=== PATIENT | male | born 1955 | race Caucasian/White ===

== ENCOUNTER 2021-04-06 07:07 | Inpatient (IN) | payer MEDICARE, MEDICAID ==
[~2021-04-06] VITALS: Ht 177.8 cm; Wt 101.3 kg
[2021-04-06] VITALS (8 sets, daily range): BP systolic 116–130; BP diastolic 78–90
[~2021-04-06 07:07] MED LIST: ALBUTERO2 IN; ATORVASTATIN CA20 MG PO; FLONASE AL50 MCG/ACT NAB; GLIPIZIDE5 M2 PO; HYDROCHLOROT25 MG PO; JANUVIA100 MG PO; LASIX 20 MG TAB20 MG PO; LISINOPRIL40 MG PO; NESINA25 MG PO; NORVASC5 M1 PO; SYMBICORT1 AE1 IN
--- NOTE | 2021-04-06 07:07 | NUR ---
PATIENT TO ROOM WITH A STEADY GAIT REFUSING WHEELCHAIR.
[2021-04-06 07:48] LABS: HEMATOCRIT 48.3 % (39.0-50.0); HEMOGLOBIN 15.4 g/dl (14.0-18.0); IMMATURE GRANULOCYTES 0.1 % (0.0-5.0); MEAN CELL VOLUME 100.6 fL CALC (80.0-100.0); MEAN CORPUSCULAR HGB 32.1 pG CALC (26.0-32.0); MEAN CORPUSCULAR HGB CONC 31.9 g/dL CAL (32.0-36.0); NEUT# 7.47 thou/uL (1.82-7.42); RED BLOOD COUNT 4.8 mill/uL (4.70-6.10); RED CELL DISTRI WIDTH 14.1 % (11.5-15.5)
--- NOTE | 2021-04-06 07:50 | NUR ---
SITTING UP IN BED IN NO DISTRESS. O2 SAT 96% ON RA, EMPTIED URINAL OF 150CC DARK JONELLE URINE
[2021-04-06 08:02] LABS: ALBUMIN 4.3 g/dL (3.2-5.0); ALKALINE PHOSPHATASE 124 u/l (38-126); ANION GAP 12 (6-22 (CALC)); BILIRUBIN, TOTAL 1.1 mg/dL (0.0-1.4); BUN 15 mg/dL (8-23); BUN/CREATININE RATIO 13 (12-20 (CALC)); CARBON DIOXIDE 25 mmol/l (22-30); CHLORIDE 101 mmol/l (95-108); CREATININE 1.1 mg/dL (0.7-1.3); GFR > 60 ML/MIN (>=60 (CALC)); GFR FOR AFR.AMER. > 60 ML/MIN (>=60 (CALC)); POTASSIUM 4.1 mmol/l (3.5-5.1); SGOT/AST 32 u/l (19-48); SODIUM 134 mmol/l (137-146); TOTAL PROTEIN 7.7 g/dL (6.3-8.2)
--- NOTE | 2021-04-06 08:50 | NUR ---
UPDATED ON WAIT TIME AND POC, RESP EVEN AND UNLABORED, NO DISTRESS. DENIES CHEST PAIN
--- NOTE | 2021-04-06 09:14 | NUR ---
CONTINUES WITH NEBULIZER TREATMENT PER RT. URINAL EMPTIED OF 800CC CLEAR LIGHT YELLOW URINE. O2 96% ON RA, N O AUDIBLE WHEEZING, NO TACHYPNEA OR SOB AT THIS TIME
[2021-04-06] MEDS ORDERED: ELIQUIS5 MG PO (10:04)
--- NOTE | 2021-04-06 10:40 | NUR ---
TOOK PT UP FOR GLORIA RN TO ICU ON MONITOR, VSS, NO DISTRESS, ALL BELONGINGS WITH PATIENT
--- NOTE | 2021-04-06 11:08 | NUR ---
Patient recieved from ED. Here for incr bilat leg swell, SOB, AFIB. Patient a/o. RN assisted with urinal and then set up for lunch. Patient resting comfortably vital signs WNL and no complaints at this time. call light within reach
--- NOTE | 2021-04-06 13:08 | NUR ---
Patient having lots of urine output. Legs elevated and vitals WNL. Call light within reach
--- NOTE | 2021-04-06 15:16 | NUR ---
[phone] STAFF AND PATIENTS EVACUATED TO BACK HALLS DUE TO PLAN DIDIER GRANT. PATIENT NOT HOOKED BACK UP TO MONITORS UNTIL BACK IN ROOM. VITALS WNL
--- NOTE | 2021-04-06 19:05 | NUR ---
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
--- NOTE | 2021-04-06 20:15 | NUR ---
awake in bed; offers no complaints; iv intact; afib on monitor; call light within reach; will continue to monitor
--- NOTE | 2021-04-06 21:50 | NUR ---
afib 150-160s briefly when standing at bedside to use urinal; will continue to monitor
--- NOTE | 2021-04-06 22:12 | NUR ---
pt sitting on the side of the bed; no apparent distress noted; offers no complaints; afib on monitor; will continue to monitor
[2021-04-07] VITALS (16 sets, daily range): BP systolic 81–140; BP diastolic 66–100
--- NOTE | 2021-04-07 00:05 | NUR ---
resting with eyes closed; easily aroused; offers no complaints; iv intact; afib on monitor; call light within reach; will continue to monitor
--- NOTE | 2021-04-07 02:02 | NUR ---
awake in bed; coughing noted; no distress noted; afib on monitor; will continue to monitor
--- NOTE | 2021-04-07 04:13 | NUR ---
awake in bed; freq coughing noted; afib 140-170s on monitor; labs obtained at this time; pt allowed to change into t-shirt as per request; cardizem gtt initiated at 10mg/hr; call light within reach; will continue to monitoer
[2021-04-07 04:28] LABS: HEMATOCRIT 47.3 % (39.0-50.0); HEMOGLOBIN 15.2 g/dl (14.0-18.0); MEAN CORPUSCULAR HGB 32.1 pG CALC (26.0-32.0); MEAN CORPUSCULAR HGB CONC 32.1 g/dL CAL (32.0-36.0); RED BLOOD COUNT 4.73 mill/uL (4.70-6.10)
[2021-04-07 04:49] LABS: ANION GAP 15 (6-22 (CALC)); BUN 14 mg/dL (8-23); BUN/CREATININE RATIO 13 (12-20 (CALC)); CARBON DIOXIDE 26 mmol/l (22-30); CHLORIDE 98 mmol/l (95-108); CREATININE 1.1 mg/dL (0.7-1.3); GFR > 60 ML/MIN (>=60 (CALC)); GFR FOR AFR.AMER. > 60 ML/MIN (>=60 (CALC)); MAGNESIUM 1.9 mg/dL (1.6-2.3); POTASSIUM 4.1 mmol/l (3.5-5.1); SODIUM 136 mmol/l (137-146)
--- NOTE | 2021-04-07 06:08 | NUR ---
awake in bed; offers no complaints; iv intact; cardizem gtt cont at 5mg/hr; no redness or edema noted at site; afib 70s on monitor; call light within reach
--- NOTE | 2021-04-07 07:00 | NUR ---
BSSR RECEIVED FROM CRISELDA GARCIA. PT AWAKE ALERT AND APPROPRIATE. VSS, CARDIZEM INFUSING THROUGH PATENT IV SITE. RATE IS 5MG/HR. HR 85. RHYTHM REMAINS AFIB. PT DENIES PAIN, SOB OR DISCOMFORT. INSTRUCTED PT TO CALL FOR ASSISTANCE, VERBALIZES UNDERSTANDING.
--- NOTE | 2021-04-07 07:18 | NUR ---
PT C NAD. VSS. C/O DINNER WAS COLD LAST NIGHT. DEBEADER TO MONITOR.
--- NOTE | 2021-04-07 10:02 | NUR ---
CARDIZEM GTT TURNED FROM 5MG/HR TO OFF AT THIS TIME. WILL RE-TAKE BLOOD PRESSURE IN 30 MINUTES AND GIVE ORDERED BETA JUANCARLOS. PT STATES UNDERSTANDING TO POC, CALL LIGHT WITHIN REACH. INSTRUCTED PT TO CALL FOR ASSISTANCE, VERBALIZES UNDERSTANDING.
--- NOTE | 2021-04-07 14:00 | NUR ---
PT RESTING IN BED. CARDIZEM REMAINS OFF, HR WNL. DENIES ANY TYPE OF SOB, CP OR DISCOMFORT. INSTRUCTED PT TO CALL FOR ASSISTANCE, VERBALIZES UNDERSTANDING.
--- NOTE | 2021-04-07 16:00 | NUR ---
PT VSS, CALL LIGHT WITHIN REACH. DENIES PAIN, SOB OR DISCOMFORT. POC REVIEWED, EMAR REVIEWED, LASIX SCHEDULE REVIEWED. PT STATES UNDERSTANDING. WILL CONTINUE TO MONITOR.
--- NOTE | 2021-04-07 18:00 | NUR ---
EOS SUMMARY, PT REMAINED AFIB WITH CONTROLLED HR OF 75-100 AFTER TURNING OFF CARDIZEM GTT. PT BS WNL. DENIES PAIN, SOB OR DISCOMFORT. EAGER FOR POSSIBLE DISCHARGE IN AM. PT INSTRUCTED TO USE CALL LIGHT, STATES UNDERSTANDING.
--- NOTE | 2021-04-07 19:15 | NUR ---
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
--- NOTE | 2021-04-07 20:20 | NUR ---
awake in bed; offers no complaints; iv intact; afib on monitor; call light within reach; will continue to monitor
--- NOTE | 2021-04-07 22:10 | NUR ---
awake in bed; offers no complaints; denies needs; iv intact; afib on monitor; call light within reach; will continue to monitor
--- NOTE | 2021-04-07 23:55 | NUR ---
awake sitting on the side of the bed; no apparent distress noted; pt offers no complaints; iv intact; afib on monitor; call light within reach; will continue to monitor
[2021-04-08] VITALS: BP 109/83
--- NOTE | 2021-04-08 02:15 | NUR ---
awake up to use urinal; afib on monitor; iv intact; call light within reach; will continue to monitor
[2021-04-08 04:20] VITALS: BP 127/108
--- NOTE | 2021-04-08 04:20 | NUR ---
awake sitting on the side of the bed; pt adamant about going home today; pt offers no complaints; iv intact and saline locked; afib on monitor; ra; denies needs; urinal at bedside; call light within reach; will continue to monitor
[2021-04-08 05:06] LABS: HEMATOCRIT 47.7 % (39.0-50.0); HEMOGLOBIN 15.1 g/dl (14.0-18.0); MEAN CELL VOLUME 100.6 fL CALC (80.0-100.0); MEAN CORPUSCULAR HGB 31.9 pG CALC (26.0-32.0); MEAN CORPUSCULAR HGB CONC 31.7 g/dL CAL (32.0-36.0); RED BLOOD COUNT 4.74 mill/uL (4.70-6.10); RED CELL DISTRI WIDTH 13.8 % (11.5-15.5)
[2021-04-08 05:21] LABS: ANION GAP 13 (6-22 (CALC)); BUN 14 mg/dL (8-23); BUN/CREATININE RATIO 13 (12-20 (CALC)); CARBON DIOXIDE 26 mmol/l (22-30); CHLORIDE 97 mmol/l (95-108); CREATININE 1.1 mg/dL (0.7-1.3); GFR > 60 ML/MIN (>=60 (CALC)); GFR FOR AFR.AMER. > 60 ML/MIN (>=60 (CALC)); POTASSIUM 3.9 mmol/l (3.5-5.1); SODIUM 133 mmol/l (137-146)
--- NOTE | 2021-04-08 06:05 | NUR ---
awake in bed; offers no complaints; deny needs; iv intact; afib on monitor; freq coughing noted; call light within reach
[2021-04-08 06:21] VITALS: BP 109/87
--- NOTE | 2021-04-08 07:27 | NUR ---
REPORT RECEIVED FROM CRISELDA GARCIA. PT AWAKE ALERT AND APPROPRIATE. VSS. DENIES PAIN, SOB OR DISCOMFORT. EAGER FOR POSSIBLE DISCHARGE. WILL AWAIT MD FOR FURTHER ORDERS TO POC. INSTRUCTED PT TO CALL FOR ASSISTANCE, STATES UNDERSTANDING.
[2021-04-08 09:11] VITALS: BP 125/92
[2021-04-08] MEDS ORDERED: LOPRESSOR25 MG PO (10:59)
[2021-04-08] MEDS ORDERED: ELIQUIS5 MG PO (10:59)
[2021-04-08] MEDS ORDERED: ATORVASTATIN CA20 MG PO (10:59)
[2021-04-08] MEDS ORDERED: JANUVIA100 MG PO (11:01)
[2021-04-08] MEDS ORDERED: SYMBICORT1 AE1 IN (11:01)
[2021-04-08] MEDS ORDERED: LASIX 20 MG TAB20 MG PO (11:01)
[2021-04-08] MEDS ORDERED: GLIPIZIDE5 M2 PO (11:01)
[2021-04-08] MEDS ORDERED: NESINA25 MG PO (11:01)
--- NOTE | 2021-04-08 11:35 | NUR ---
pt discharged AT THIS TIME IN STABLE CONDITION. 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 IV SITE REMOVED, SENT TO ER EXIT VIA WHEELCHAIR WITH ONE MEMBER OF STAFF. BRAKE LINING FINISHER ASBESTOS APPROVED TAXI VOUCHER AT THIS TIME.
== END 2021-04-08 11:35 | disposition home or self-care (01) | DRG 292 ==
LOC: ED 07:07 → ED-I 08:18 → ED 08:33 → ICU 08:34
PROVIDERS: Family Medicine; ADMIT Hospitalist; ATTEND Hospitalist
DX: I11.0 Hypertensive heart disease with heart failure (principal); J44.1 Chronic obstructive pulmonary disease with (acute) exacerbation; I50.9 Heart failure, unspecified; I48.91 Unspecified atrial fibrillation; E11.9 Type 2 diabetes mellitus without complications; I25.10 Atherosclerotic heart disease of native coronary artery without angina pectoris; I25.2 Old myocardial infarction; F17.210 Nicotine dependence, cigarettes, uncomplicated; T50.1X6A Underdosing of loop [high-ceiling] diuretics, initial encounter; T50.916A Underdosing of multiple unspecified drugs, medicaments and biological substances, initial encounter; Z91.138 Patient's unintentional underdosing of medication regimen for other reason; Z79.84 Long term (current) use of oral hypoglycemic drugs; Z95.5 Presence of coronary angioplasty implant and graft; Z79.01 Long term (current) use of anticoagulants; Z20.822 Contact with and (suspected) exposure to COVID-19
CPT/HCPCS: J1650

== ENCOUNTER 2021-05-09 14:17 | Inpatient (IN) | payer MEDICARE, MEDICAID ==
[~2021-05-09] VITALS: Ht 172.7 cm; Wt 98.0 kg
[2021-05-09 00:01] VITALS: BP 103/84
[~2021-05-09 14:17] MED LIST changes: +ELIQUIS5 MG PO; +LOPRESSOR25 MG PO
[2021-05-09 14:58] LABS: HEMATOCRIT 49.1 % (39.0-50.0); HEMOGLOBIN 15.6 g/dl (14.0-18.0); IMMATURE GRANULOCYTES 0.2 % (0.0-5.0); MEAN CELL VOLUME 100.8 fL CALC (80.0-100.0); MEAN CORPUSCULAR HGB CONC 31.8 g/dL CAL (32.0-36.0); NEUT# 9.19 thou/uL (1.82-7.42); RED BLOOD COUNT 4.87 mill/uL (4.70-6.10); RED CELL DISTRI WIDTH 14.8 % (11.5-15.5)
[2021-05-09 15:06] LABS: INTERNATIONAL NORMALIZED RATIO 1.2 RATIO (0.7-1.3); PROTHROMBIN TIME 12.7 SECONDS (9.0-12.5)
[2021-05-09 15:09] LABS: ALBUMIN 4.3 g/dL (3.2-5.0); ALKALINE PHOSPHATASE 154 u/l (38-126); ANION GAP 15 (6-22 (CALC)); BILIRUBIN, TOTAL 1.3 mg/dL (0.0-1.4); BUN 20 mg/dL (8-23); BUN/CREATININE RATIO 18 (12-20 (CALC)); CARBON DIOXIDE 24 mmol/l (22-30); CHLORIDE 101 mmol/l (95-108); CREATININE 1.1 mg/dL (0.7-1.3); GFR > 60 ML/MIN (>=60 (CALC)); GFR FOR AFR.AMER. > 60 ML/MIN (>=60 (CALC)); SGOT/AST 34 u/l (19-48); SODIUM 136 mmol/l (137-146); TOTAL PROTEIN 8.2 g/dL (6.3-8.2)
[2021-05-09 17:20] VITALS: BP 137/97
[2021-05-09 19:20] VITALS: BP 127/92
[2021-05-09 21:00] VITALS: BP 119/81
[2021-05-09 22:00] VITALS: BP 105/69
[2021-05-09 23:00] VITALS: BP 95/68
[2021-05-10] VITALS (18 sets, daily range): BP systolic 92–150; BP diastolic 66–99
[2021-05-10 05:47] LABS: HEMOGLOBIN 13.9 g/dl (14.0-18.0); MEAN CELL VOLUME 98.2 fL CALC (80.0-100.0); MEAN CORPUSCULAR HGB 31.9 pG CALC (26.0-32.0); MEAN CORPUSCULAR HGB CONC 32.5 g/dL CAL (32.0-36.0); RED BLOOD COUNT 4.36 mill/uL (4.70-6.10); RED CELL DISTRI WIDTH 14.5 % (11.5-15.5)
[2021-05-10 05:58] LABS: HEMATOCRIT 42.8 % (39.0-50.0)
[2021-05-10 05:59] LABS: ANION GAP 12 (6-22 (CALC)); BUN 16 mg/dL (8-23); BUN/CREATININE RATIO 17 (12-20 (CALC)); CALCULATED LDLCHOLESTEROL 73 mg/dL (62-129 (CALC)); CARBON DIOXIDE 26 mmol/l (22-30); CHLORIDE 102 mmol/l (95-108); CHOLESTEROL HDL RATIO 4.1 (<4.4 (CALC)); CREATININE 0.9 mg/dL (0.7-1.3); GFR > 60 ML/MIN (>=60 (CALC)); GFR FOR AFR.AMER. > 60 ML/MIN (>=60 (CALC)); HDL CHOLESTEROL 27 mg/dL (>=40); MAGNESIUM 1.8 mg/dL (1.6-2.3); POTASSIUM 3.5 mmol/l (3.5-5.1); SODIUM 136 mmol/l (137-146); TOTAL CHOLESTEROL 110 mg/dl (0-199); TOTAL TRIGLYCERIDES 55 mg/dl (30-149); VLDL CHOLESTROL 11 mg/dl (4-45 (CALC))
[2021-05-10] MEDS ORDERED: LASIX 20 MG TAB20 MG PO (09:33)
[2021-05-10] MEDS ORDERED: ELIQUIS5 MG PO (09:34)
[2021-05-10] MEDS ORDERED: LIPITOR20 MG PO (09:34)
[2021-05-10] MEDS ORDERED: AMLODIPINE BESYL5 MG PO (09:34)
[2021-05-10] MEDS ORDERED: ZESTRIL40 MG PO (09:35)
[2021-05-10] MEDS ORDERED: JANUVIA100 MG PO (09:35)
[2021-05-10] MEDS ORDERED: HYDROCHLOROT25 MG PO (09:35)
[2021-05-10] MEDS ORDERED: GLIPIZIDE ER5 M1 PO (09:36)
[2021-05-10] MEDS ORDERED: SYMBICORT1 AE1 IN (09:36)
[2021-05-10] MEDS ORDERED: VENTOLIN HFA108 MCG PO (09:37)
[2021-05-10] MEDS ORDERED: BREZTRI AEROSPH1 AER PO (09:41)
[2021-05-10] MEDS ORDERED: TAMSULOSIN HCL0.4 MG PO (10:21)
[2021-05-10] MEDS ORDERED: VITAMIN D31000 UNI1 PO (10:21)
[2021-05-10] MEDS ORDERED: OMEPRAZOLE DR40 MG PO (10:28)
[2021-05-11] VITALS (11 sets, daily range): BP systolic 115–148; BP diastolic 64–92
[2021-05-11 05:32] LABS: HEMATOCRIT 41.3 % (39.0-50.0); HEMOGLOBIN 13.7 g/dl (14.0-18.0); MEAN CELL VOLUME 96.7 fL CALC (80.0-100.0); MEAN CORPUSCULAR HGB 32.1 pG CALC (26.0-32.0); MEAN CORPUSCULAR HGB CONC 33.2 g/dL CAL (32.0-36.0); RED BLOOD COUNT 4.27 mill/uL (4.70-6.10); RED CELL DISTRI WIDTH 14.6 % (11.5-15.5)
[2021-05-11 05:59] LABS: ANION GAP 14 (6-22 (CALC)); BUN 19 mg/dL (8-23); BUN/CREATININE RATIO 23 (12-20 (CALC)); CARBON DIOXIDE 25 mmol/l (22-30); CHLORIDE 99 mmol/l (95-108); CREATININE 0.8 mg/dL (0.7-1.3); GFR > 60 ML/MIN (>=60 (CALC)); GFR FOR AFR.AMER. > 60 ML/MIN (>=60 (CALC)); MAGNESIUM 1.8 mg/dL (1.6-2.3); POTASSIUM 3.7 mmol/l (3.5-5.1); SODIUM 134 mmol/l (137-146)
[2021-05-11] MEDS ORDERED: LASIX 40 MG TAB40 MG PO (13:27)
[2021-05-12] VITALS: BP 127/84
[2021-05-12 04:04] VITALS: BP 122/92
[2021-05-12 05:02] LABS: HEMATOCRIT 42.8 % (39.0-50.0); HEMOGLOBIN 13.9 g/dl (14.0-18.0); IMMATURE GRANULOCYTES 0.9 % (0.0-5.0); MEAN CELL VOLUME 96.8 fL CALC (80.0-100.0); MEAN CORPUSCULAR HGB 31.4 pG CALC (26.0-32.0); MEAN CORPUSCULAR HGB CONC 32.5 g/dL CAL (32.0-36.0); NEUT# 16.2 thou/uL (1.82-7.42); RED BLOOD COUNT 4.42 mill/uL (4.70-6.10); RED CELL DISTRI WIDTH 14.5 % (11.5-15.5)
[2021-05-12 05:31] LABS: ALBUMIN 3.5 g/dL (3.2-5.0); ALKALINE PHOSPHATASE 113 u/l (38-126); ANION GAP 13 (6-22 (CALC)); BILIRUBIN, TOTAL 0.9 mg/dL (0.0-1.4); BUN 24 mg/dL (8-23); BUN/CREATININE RATIO 24 (12-20 (CALC)); CARBON DIOXIDE 26 mmol/l (22-30); CHLORIDE 96 mmol/l (95-108); GFR > 60 ML/MIN (>=60 (CALC)); GFR FOR AFR.AMER. > 60 ML/MIN (>=60 (CALC)); POTASSIUM 4.1 mmol/l (3.5-5.1); SGOT/AST 22 u/l (19-48); SODIUM 130 mmol/l (137-146); TOTAL PROTEIN 6.6 g/dL (6.3-8.2)
[2021-05-12 05:40] LABS: INTERNATIONAL NORMALIZED RATIO 1.2 RATIO (0.7-1.3); PROTHROMBIN TIME 12.5 SECONDS (9.0-12.5)
[2021-05-12 07:32] VITALS: BP 138/82
[2021-05-12 10:38] LABS: URINE BILIRUBIN - DIPSTICK NEGATIVE (NEGATIVE); URINE BLOOD DIPSTICK NEGATIVE (NEGATIVE); URINE COLOR YELLOW; URINE GLUCOSE - DIPSTICK NEGATIVE (NEGATIVE); URINE KETONE NEGATIVE (NEGATIVE); URINE LEUK ESTERASE NEGATIVE (NEGATIVE); URINE PROTEIN - DIPSTICK NEGATIVE (NEG-TRACE); URINE UROBILINOGEN - DIPSTICK 0.2 E.U./dL (0.2)
[2021-05-12 10:39] LABS: URINE NITRITE - DIPSTICK NEGATIVE (Negative)
[2021-05-12 11:01] VITALS: BP 136/80
[2021-05-12 15:57] VITALS: BP 143/73
[2021-05-12 19:00] VITALS: BP 116/80
[2021-05-13] VITALS: BP 114/86
[2021-05-13 04:00] VITALS: BP 112/83
[2021-05-13 05:14] LABS: HEMOGLOBIN 14.2 g/dl (14.0-18.0); MEAN CORPUSCULAR HGB 32.1 pG CALC (26.0-32.0); MEAN CORPUSCULAR HGB CONC 33.8 g/dL CAL (32.0-36.0); RED BLOOD COUNT 4.42 mill/uL (4.70-6.10); RED CELL DISTRI WIDTH 14.4 % (11.5-15.5)
[2021-05-13 05:26] LABS: ANION GAP 11 (6-22 (CALC)); BUN 31 mg/dL (8-23); BUN/CREATININE RATIO 29 (12-20 (CALC)); CARBON DIOXIDE 32 mmol/l (22-30); CHLORIDE 91 mmol/l (95-108); CREATININE 1.1 mg/dL (0.7-1.3); GFR > 60 ML/MIN (>=60 (CALC)); GFR FOR AFR.AMER. > 60 ML/MIN (>=60 (CALC)); MAGNESIUM 1.7 mg/dL (1.6-2.3); POTASSIUM 3.9 mmol/l (3.5-5.1); SODIUM 130 mmol/l (137-146)
[2021-05-13 07:15] VITALS: BP 115/87
[2021-05-13 11:54] VITALS: BP 123/82
[2021-05-13 15:55] VITALS: BP 122/87
[2021-05-13 19:20] VITALS: BP 150/82
[2021-05-14 00:15] VITALS: BP 99/76
[2021-05-14 04:00] VITALS: BP 110/81
[2021-05-14 05:00] LABS: HEMATOCRIT 42.3 % (39.0-50.0); HEMOGLOBIN 14.1 g/dl (14.0-18.0); MEAN CELL VOLUME 95.3 fL CALC (80.0-100.0); MEAN CORPUSCULAR HGB 31.8 pG CALC (26.0-32.0); MEAN CORPUSCULAR HGB CONC 33.3 g/dL CAL (32.0-36.0); RED BLOOD COUNT 4.44 mill/uL (4.70-6.10)
[2021-05-14 05:14] LABS: ALBUMIN 3.3 g/dL (3.2-5.0); ALKALINE PHOSPHATASE 110 u/l (38-126); ANION GAP 10 (6-22 (CALC)); BILIRUBIN, TOTAL 0.8 mg/dL (0.0-1.4); BUN 36 mg/dL (8-23); BUN/CREATININE RATIO 35 (12-20 (CALC)); CARBON DIOXIDE 38 mmol/l (22-30); CHLORIDE 83 mmol/l (95-108); GFR > 60 ML/MIN (>=60 (CALC)); GFR FOR AFR.AMER. > 60 ML/MIN (>=60 (CALC)); POTASSIUM 3.7 mmol/l (3.5-5.1); SGOT/AST 27 u/l (19-48); SODIUM 127 mmol/l (137-146); TOTAL PROTEIN 6.3 g/dL (6.3-8.2)
[2021-05-14 07:10] VITALS: BP 115/80
[2021-05-14 10:23] VITALS: BP 120/76
[2021-05-14 15:43] VITALS: BP 118/75
[2021-05-14 20:00] VITALS: BP 123/78
[2021-05-15 00:12] VITALS: BP 104/80
[2021-05-15 05:26] VITALS: BP 135/97
[2021-05-15 05:41] LABS: HEMATOCRIT 45.9 % (39.0-50.0); HEMOGLOBIN 15.6 g/dl (14.0-18.0); MEAN CELL VOLUME 94.3 fL CALC (80.0-100.0); RED BLOOD COUNT 4.87 mill/uL (4.70-6.10); RED CELL DISTRI WIDTH 13.7 % (11.5-15.5)
[2021-05-15 06:11] LABS: ALBUMIN 3.5 g/dL (3.2-5.0); ALKALINE PHOSPHATASE 107 u/l (38-126); ANION GAP 12 (6-22 (CALC)); BILIRUBIN, TOTAL 0.8 mg/dL (0.0-1.4); BUN 38 mg/dL (8-23); BUN/CREATININE RATIO 37 (12-20 (CALC)); CARBON DIOXIDE 35 mmol/l (22-30); CHLORIDE 84 mmol/l (95-108); GFR > 60 ML/MIN (>=60 (CALC)); GFR FOR AFR.AMER. > 60 ML/MIN (>=60 (CALC)); POTASSIUM 3.9 mmol/l (3.5-5.1); SGOT/AST 25 u/l (19-48); SODIUM 127 mmol/l (137-146); TOTAL PROTEIN 6.4 g/dL (6.3-8.2)
[2021-05-15 07:45] VITALS: BP 125/94
[2021-05-15 10:30] VITALS: BP 120/80
[2021-05-15 14:31] VITALS: BP 120/80
[2021-05-15 19:00] VITALS: BP 119/80
[2021-05-16] VITALS: BP 112/76
[2021-05-16 04:30] VITALS: BP 116/84
[2021-05-16 05:19] LABS: HEMOGLOBIN 15.3 g/dl (14.0-18.0); MEAN CELL VOLUME 94.8 fL CALC (80.0-100.0); MEAN CORPUSCULAR HGB 31.5 pG CALC (26.0-32.0); MEAN CORPUSCULAR HGB CONC 33.3 g/dL CAL (32.0-36.0); RED BLOOD COUNT 4.85 mill/uL (4.70-6.10); RED CELL DISTRI WIDTH 13.7 % (11.5-15.5)
[2021-05-16 05:40] LABS: ANION GAP 10 (6-22 (CALC)); BUN 44 mg/dL (8-23); BUN/CREATININE RATIO 36 (12-20 (CALC)); CARBON DIOXIDE 34 mmol/l (22-30); CHLORIDE 88 mmol/l (95-108); CREATININE 1.2 mg/dL (0.7-1.3); GFR > 60 ML/MIN (>=60 (CALC)); GFR FOR AFR.AMER. > 60 ML/MIN (>=60 (CALC)); MAGNESIUM 1.7 mg/dL (1.6-2.3); POTASSIUM 3.7 mmol/l (3.5-5.1); SODIUM 129 mmol/l (137-146)
[2021-05-16 07:34] VITALS: BP 127/86
[2021-05-16 10:30] VITALS: BP 121/77
[2021-05-16] MEDS ORDERED: MEDDOSEPAK PO (11:49)
[2021-05-16] MEDS ORDERED: LOPRESSOR50 M1 PO (21:49)
== END 2021-05-16 13:18 | disposition home or self-care (01) | DRG 292 ==
LOC: ED 14:17 → ED-I 15:11 → ED 16:02 → ICU 16:03 → MS2 05-11 13:41
PROVIDERS: Family Medicine; Hospitalist; Nurse Practitioner; Nurse Practitioner Family; ADMIT Internal Medicine; ATTEND Internal Medicine
DX: I11.0 Hypertensive heart disease with heart failure (principal); J44.1 Chronic obstructive pulmonary disease with (acute) exacerbation; I50.9 Heart failure, unspecified; I48.91 Unspecified atrial fibrillation; E11.9 Type 2 diabetes mellitus without complications; I25.10 Atherosclerotic heart disease of native coronary artery without angina pectoris; F17.210 Nicotine dependence, cigarettes, uncomplicated; H53.8 Other visual disturbances; I25.2 Old myocardial infarction; F40.240 Claustrophobia; T50.2X6A Underdosing of carbonic-anhydrase inhibitors, benzothiadiazides and other diuretics, initial encounter; T44.7X6A Underdosing of beta-adrenoreceptor antagonists, initial encounter; Z91.128 Patient's intentional underdosing of medication regimen for other reason; Z59.00 Homelessness unspecified; Z79.01 Long term (current) use of anticoagulants; Z95.5 Presence of coronary angioplasty implant and graft; Z79.84 Long term (current) use of oral hypoglycemic drugs; Z20.822 Contact with and (suspected) exposure to COVID-19
CPT/HCPCS: G0378; Q9967